=== PATIENT | female | born 1995 | race Caucasian/White ===

== ENCOUNTER 2016-10-28 02:19 | Emergency (ER) | payer OTHER ==
[~2016-10-28] VITALS: Ht 152.4 cm; Wt 67.1 kg
[2016-10-28 02:24] VITALS: TEMP 36.9; Ht 152.4 cm; Wt 67.1 kg
--- NOTE | 2016-10-28 02:36 | EMERGENCY ROOM VISIT NOTE ---
History Report prepared by Howie: Dai Live Under the Supervision of: Dr. Cici Stanton D.O. First contact with patient: 02:27 Chief Complaint: ALCOHOL OVERDOSE Stated Complaint: OD, Nursing Triage Summary: Pt friends had brought patient in. Pt was found by strangers outside of the dorm sleeping. Strangers brought patient into dorm area and someone recognized her and brought her to dormroom. Friend states she was out at a bar but doesn't know where she went after that. History of Present Illness The patient is a 21 year old female who presents to the Emergency Room with complaints of an alcohol overdose that occurred prior to arrival. The patient' s friend states that the patient was out drinking this evening and then was found outside of their dorm building sleeping. She states that the patient was brought into their dorm by strangers. The patient denies any drug use. She denies any fall or trauma. The patient denies any active medical problems. She denies any vomiting, abdominal pain, or chance of . The history is limited secondary to alcohol intoxication. Source of History: patient, friend History Limited By: intoxication Onset: prior to arrival Position: other (global) Quality: other (alcohol overdose) Associated Symptoms: No abdominal pain, No vomiting Review of Systems The history is limited secondary to alcohol intoxication. Past Medical & Surgical No active medical problems Family History Unobtainable secondary to alcohol intoxication. Social History Smoking Status: Never Smoker Alcohol Use: heavy Occupation Status: [employer] student Current/Historical Medications No Active Prescriptions or Reported Meds Allergies Coded Allergies: No Known Allergies (Unverified , 10/28/16) Physical Exam Vital Signs Date Time Temp Pulse Resp B/P Pulse Ox O2 Delivery O2 Flow Rate FiO2 10/28/16 06:51 81 16 99/47 97 Room Air 10/28/16 06:40 80 16 95 Room Air 10/28/16 06:30 90/44 10/28/16 06:10 79 16 96 10/28/16 06:08 87/60 10/28/16 06:05 78 10/28/16 05:40 75 14 95 10/28/16 05:35 76 17 96 Room Air 10/28/16 05:33 96/58 10/28/16 05:31 10/28/16 05:30 10/28/16 05:05 80 14 95 10/28/16 05:00 82/39 10/28/16 04:35 80 14 95 10/28/16 04:30 97/50 10/28/16 04:24 80 24 96 Room Air 10/28/16 04:00 102/47 10/28/16 03:54 81 21 95 10/28/16 03:30 101/44 10/28/16 03:24 76 14 95 10/28/16 03:19 75 14 95 Room Air 10/28/16 03:00 100/42 10/28/16 02:49 75 24 98 10/28/16 02:30 110/73 10/28/16 02:29 100 10/28/16 02:26 123/63 10/28/16 02:24 36.9 83 20 123/63 97 Room Air Physical Exam General: Awakes easily, answers questions, smells of alcohol. HEENT: Head - normocephalic and atraumatic Pupils are 3 mm and reactive to light. Nose - moist nasal mucosa without discharge. Mouth - moist buccal mucosa. Oropharynx is nonerythematous and there is no tonsillar exudate or edema noted. Neck: Supple; no JVD, nuchal rigidity, cervical lymphadenopathy. Heart: Regular rate and rhythm. There is a normal S1 and S2 with no murmurs, clicks, or gallops appreciated. Lungs: Clear to auscultation bilaterally with no wheezes, rales, or rhonchi. Abdomen: Soft, completely nontender, nondistended, with good bowel sounds. There are no palpable pulsatile masses or hepatosplenomegaly. There is no guarding, rigidity, or rebound noted. Extremities: No evidence of cyanosis, clubbing, or edema. There are easily palpable peripheral pulses. Skin: warm and dry with good turgor and no rashes. Medical Decision & Procedures Laboratory Results 10/28/16 02:30 Test 10/28/16 02:30 Anion Gap 11.0 mmol/L (3-11) Est Creatinine Clear Calc Drug Dose 108.7 ml/min Estimated GFR () 143.5 Estimated GFR (Non- 123.9 BUN/Creatinine Ratio 18.3 (10-20) Calcium Level 8.5 mg/dl (8.5-10.1) Ethyl Alcohol mg/dL 314.0 mg/dl (0-3) Laboratory results per my review. ED Course 0229: Past medical records reviewed. The patient was evaluated in room A11B. A complete history and physical exam was performed. The patient was placed in the prone position to avoid aspiration. She had laboratory studies drawn as above. 0329: I reevaluated the patient and she is asleep and hemodynamically stable. The patient will remain here in the emergency department until she is more sober. 0615: The patient remains sound asleep and has normal vital signs. 0730: The patient was signed out to Dr. Estes at change of shift. Medical Decision The patient is a 21 year old female who presents to the ED with an alcohol overdose. Differential diagnosis includes alcohol overdose, drug intoxication, head injury, hypoglycemia. Lab interpretation: alcohol 314, glucose 99, normal renal function This is a 21-year-old female patient who presents to the emergency department after consuming too much alcohol. She had no significant outward signs of trauma. Laboratory studies confirmed that the patient's blood alcohol was significantly elevated at 314. The patient was checked on multiple occasions and remains hemodynamically stable. Impression Primary Impression: Alcohol intoxication with blood level over 0.3 Additional Impression: Alcohol overdose Scribe Attestation The scribe's documentation has been prepared under my direction and personally reviewed by me in its entirety. I confirm that the note above accurately reflects all work, treatment, procedures, and medical decision making performed by me. Departure Information Dispostion Home / Self-Care Prescriptions No Active Prescriptions or Reported Meds Referrals No Doctor, Assigned (PCP) Forms HOME CARE DOCUMENTATION FORM, IMPORTANT VISIT INFORMATION Patient Instructions ED Overdose Alcohol, [facility]: [employer] Students and Alcohol Related Visits, My [facility] Additional Instructions Rest Take plenty of clear liquids Avoid such excessive alcohol use in the future Take tylenol for headaches Problem Qualifiers
[2016-10-28 02:53] LABS: BUN/CREATININE RATIO 18.3 (10-20); CALCIUM 8.5 mg/dl (8.5-10.1); CREATININE 0.7 mg/dl (0.60-1.20); POTASSIUM 3.6 mmol/L (3.5-5.1)
--- NOTE | 2016-10-28 07:09 | EMERGENCY ROOM VISIT NOTE ---
ED Visit Note This patient was signed out to me at shift change by Dr. Stanton. She had been drinking alcohol last night. There is no reported trauma. Her blood alcohol was elevated at 314 and she was sobering up. She was observed further in the ER as her blood alcohol decreased. Prior to discharge, she was reevaluated and denies any coingestions or thoughts of hurting herself. She denies any trauma or any other complaints. She is able ambulate without difficulty and drink fluids and had a ride home. She will be discharged home with a sober female friend.
[2016-10-28 08:19] VITALS: BP 101/68; PULSE 86; O2SAT 99
== END 2016-10-28 08:26 | disposition home or self-care (01) ==
LOC: MERGE 02:23 → C.EDB 02:23 → C.EDA 08:26
DX: T51.91XA Toxic effect of unspecified alcohol, accidental (unintentional), initial encounter (principal); F10.129 Alcohol abuse with intoxication, unspecified